=== PATIENT | male | born 1945 | race Caucasian/White ===

== ENCOUNTER 2018-01-30 18:54 | Inpatient (IN) | payer MEDICARE, MEDICAID ==
[2018-01-30] MEDS ORDERED: Haloperidol Lactate 5 mg/mL 1mL Vial IM STA (19:30)
--- NOTE | 2018-01-30 19:41 | ED Physician Chart ---
ED Chief Complaint/HPI - Patient Information Date Seen:: 01/30/18 Time Seen:: 19:10 Chief Complaint:: Agitation History of Present Illness:: onset x 3 days of agitation; no report of trauma, SIs, H/As, S/T, neck pain, C/P , SOB, Abd. Pain, A/N/V/D/C, fever, chills, or urinary s/s Allergies:: Allergies Allergy/AdvReac Type Severity Reaction Status Date / Time No Known Allergies Allergy Verified 01/30/18 19:13 Vitals:: Vital Signs - 8 hr 01/30/18 19:10 Temp 98.8 F HR 77 RR 18 BP 133/74 O2 Sat % 99 Historian:: Patient, EMS Review:: Nurse's Note Reviewed, Old Chart Reviewed, EMS run form Reviewed ED Review of Systems - Review of Systems General/Constitutional: No fever, No chills, No weight loss, No weakness, No diaphoresis, No edema, No loss of appetite Skin: No skin lesions, No rash, No bruising Head: No headache, No light-headedness Eyes: No loss of vision, No pain, No diplopia ENT: No earache, No nasal drainage, No sore throat, No tinnitus Neck: No neck pain, No swelling, No thyromegaly, No stiffness, No mass noted Cardio Vascular: No chest pain, No palpitations, No PND, No orthopnea, No edema Pulmonary: No SOB, No cough, No sputum, No wheezing GI: No nausea, No vomiting, No diarrhea, No pain, No melena, No hematochezia, No constipation, No hematemesis G/U: No dysuria, No frequency, No hematuria Musculoskeletal: No bone or joint pain, No back pain, No muscle pain Endocrine: No polyuria, No polydipsia Psychiatric: Prior psych history, Depression, Anxiety, No suicidal ideation, No homicidal ideation, No auditory hallucination, No visual hallucination Hematopoietic: No bruising, No lymphadenopathy Allergic/Immuno: No urticaria, No angioedema Neurological: No syncope, No focal symptoms, No weakness, No paresthesia, No headache, No seizure, No dizziness, No confusion, No vertigo ED Past Medical History - Past Medical History Obtainable: Yes Past Medical History: HTN, DM, Dyslipidemia Family History: HTN Social History: Non Smoker, No Alcohol, No Drug Use, Single, Care Facility Surgical History: None Psychiatricy History: Depression, Schizophrenia, Bipolar Medication: Reviewed Family Medical History - Family Member Mother History Unknown: Yes ED Physical Exam - Physical Examination General/Constitutional: Awake, Well-developed, well-nourished, Alert, No distress, GCS 15, Non-toxic appearing, Ambulatory Head: Atraumatic Eyes: Lids, conjuctiva normal, PERRL, EOMI Skin: Nl inspection, No rash, No skin lesions, No ecchymosis, Well hydrated, No lymphadenopathy ENMT: External ears, nose nl, TM canals nl, Nasal exam nl, Lips, teeth, gums nl , Oropharynx nl, Tonsils nl Neck: Nontender, Full ROM w/o pain, No JVD, No nuchal rigidity, No bruit, No mass, No stridor Respiratory: Nl effort/Exclusion, Clear to Auscultation, No Wheeze/Rhonchi/Rales Cardio Vascular: RRR, No murmur, gallop, rubs, NL S1 S2, Carotid/Femoral/Distal pulses equal bilaterally GI: No tenderness/rebounding/guarding, No organomegaly, No hernia, Normal BS's, Nondistended, No mass/bruits, No McBurney tenderness : No CVA tenderness Extremities: No tenderness or effusion, Full ROM, normal strength in all extremities, No edema, Normal digits & nails Neuro/Psych: Alert/oriented, DTR's symmetric, Normal sensory exam, Normal motor strength, Judgement/insight normal, Mood normal, Normal gait, No focal deficits Other Neuro/Psych comments:: + Psychomotor Agitation; no SIs; Mood/Affect: Labile Misc: Normal back, No paraspinal tenderness ED Labs/Radiology/EKG Results - Lab Results Comments:: Reviewed - EKG Interpretations EKG Time:: 19:47 Rate & Rhythm: 69; NSR Comments:: non-specific st-t changes ED Septic Shock - . Is Septic Shock (SBP<90, OR Lactate>4 mmol\L) present?: No - <6hrs of presentation: Vital Signs: Vital Signs - 8 hr 01/30/18 19:10 Temp 98.8 F HR 77 RR 18 BP 133/74 O2 Sat % 99 ED Reassessment (Disposition) - Reassessment Reassessment Condition:: Improved - Diagnosis Diagnosis:: Agitation; Medical Clearance; Bipolar Disorder; DM; Schizo-Affective Disorder - Aftercare/Follow up Instructions Aftercare/Follow-Up Instructions:: Counseled pt regarding lab results/diagnosis & need follow up, Counseled pt & family regarding lab results/diagnosis & need follow up - Patient Disposition Discharge/Transfer:: Acute Care w/in this hosp Admitted to:: [facility] Condition at Disposition:: Stable, Improved
[2018-01-30] MEDS ORDERED: Haloperidol Lactate 5 mg/mL 1mL Vial ONE (19:58)
[2018-01-30 20:49] LABS: % BASOPHILS 0.4 % (0.0-2.0); % EOSINOPHILS 1.8 % (0.0-5.0); % LYMPHOCYTES 9.6 % (20.0-50.0); % MONOCYTES 6.9 % (2.0-10.0); % NEUTROPHILS 81.3 % (40.0-80.0); EOSINOPHILE ABSOLUTE 0.1 Th/cmm (0.1-0.4); HEMATOCRIT 39.2 % (41.0-60); HEMOGLOBIN 13.1 gm/dL (12-16); LYMPHOCYTE ABSOLUTE 0.7 Th/cmm (1.5-3.0); MEAN CELL VOLUME 95.9 fl (80-99); MEAN CORPUSCULAR HEMOGLOBIN 32.1 pg (27.0-31.0); MEAN CORPUSCULAR HGB CONC 33.5 pg (28.0-36.0); MONOCYTE ABSOLUTE 0.5 Th/cmm (0.3-1.0); NEUTROPHILE ABSOLUTE 5.6 Th/cmm (1.8-8.0); PLATELET COUNT 191 Th/cmm (150-400); RED BLOOD COUNT 4.09 Mil/cmm (3.80-5.80); RED CELL DISTRIBUTION WIDTH 12.7 % (11.5-20.0); WHITE BLOOD COUNT 6.9 Th/cmm (4.8-10.8)
[2018-01-30 20:50] LABS: URINE SOURCE CLEAN C
[2018-01-30 20:55] LABS: URINE BILIRUBIN NEGATIVE (NEGATIVE); URINE BLOOD NEGATIVE (NEGATIVE); URINE GLUCOSE (UA) 100 mg/dL (NEGATIVE); URINE KETONE NEGATIVE (NEGATIVE); URINE LEUKOCYTE ESTERASE NEGATIVE (NEGATIVE); URINE NITRATE NEGATIVE (NEGATIVE); URINE PROTEIN NEGATIVE (NEGATIVE); URINE UROBILINOGEN 0.2 E.U./dL (0.2 - 1.0)
[2018-01-30 21:02] LABS: URINE CLARITY CLEAR (CLEAR); URINE COLOR YELLOW; URINE MICROSCOPIC INDICATED? YES; URINE RBC NONE SEEN /hpf (0-5)
[2018-01-30 21:03] LABS: URINE BACTERIA OCCASIONAL /hpf (NONE SEEN); URINE EPITHELIAL CELLS OCCASIONAL /lpf (FEW); URINE WBC 0-2 /hpf (0-5)
[2018-01-30 21:04] LABS: AMPHETAMINE URINE NEGATIVE (NEGATIVE); BARBITURATES URINE NEGATIVE (NEGATIVE); BENZODIAZEPINES QUAL URINE NEGATIVE (NEGATIVE); CANNABINOID THC NEGATIVE (NEGATIVE); COCAINE METABOLITE QUAL URINE NEGATIVE (NEGATIVE); METHADONE URINE NEGATIVE (NEGATIVE); METHAMPHETAMINES QUAL URINE NEGATIVE (NEGATIVE); OPIATES (MORPHINE) QUAL. URINE NEGATIVE (NEGATIVE); PHENCYCLIDINE (PCP) URINE NEGATIVE (NEGATIVE); TRICYCLICS (TCA) QUAL. URINE NEGATIVE (NEGATIVE)
[2018-01-30 21:08] LABS: ALB/GLOB RATIO 1.6 (1.0-1.8); ALKALINE PHOSPHATASE 65 U/L (34-104); ANION GAP 12.9 (7.0-16.0); BILIRUBIN,TOTAL 0.5 mg/dL (0.3-1.0); BUN - UREA NITROGEN 21 mg/dL (7-25); CALCIUM SERUM 9.1 mg/dL (8.6-10.3); CHLORIDE 103 mEq/L (98-107); CHOLESTEROL 130 mg/dL (<200); CREATININE - SERUM 0.9 mg/dL (0.7-1.3); GLUCOSE 277 mg/dL (70-105); HDL -HIGH DENSITY LIPOPROTEIN 39 mg/dL (23-92); POTASSIUM SERUM 3.9 mEq/L (3.5-5.1); SALICYLATES (ASPIRIN) < 25.0 mg/L (30.0-100.0); SGOT 21 U/L (13-39); SGPT/ALT 25 U/L (7-52); SODIUM SERUM 137 mEq/L (136-145); TOTAL PROTEIN,SERUM 6.5 gm/dL (6.0-8.3); TRIGLYCERIDES 76 mg/dL (<150)
[2018-01-30 21:24] LABS: ACETAMINOPHEN < 10.0 ug/mL (10.0-30.0)
[2018-01-30] MEDS ORDERED: INSULIN HUMAN REGULAR 100 UNITS/ML UNIT SUBQ ONE (21:54)
[2018-01-30] MEDS ORDERED: INSULIN HUMAN REGULAR 100 UNITS/ML UNIT ONE (21:59)
[2018-01-31 11:34] VITALS: BP 153/89
[2018-01-31] MEDS ORDERED: Magnesium Hydroxide (MOM) 30 mL UDC PO PRN ×2 (11:53→21:06)
[2018-01-31] MEDS ORDERED: Maalox 30 mL Cup PO PRN (11:53)
--- NOTE | 2018-01-31 12:59 | History & Physical ---
ADMIT DATE: 01/30/2018 IDENTIFYING INFORMATION: The patient is a 72-year-old male. CHIEF COMPLAINT: No answer. HISTORY OF PRESENT ILLNESS: This is referred from [place] because he has increasing agitation, striking out at staff, unpredictable, impulsive. When I talked to him, he is a well-known ____ know him from [place]. The patient usually refuses to talk. He does not believe he needs a psychiatrist with episodes of agitation and irritability. The patient did not know where he was. He was answering questions inappropriately. The patient is unable to participate in meaningful conversation or make safe plan for self-care. He has to be medicated upon admission. PAST PSYCHIATRIC HISTORY: Agitation and irritability, refusing medication. The patient was given Haldol. ALLERGIES: No known drug allergies. MEDICAL HISTORY: The patient is diabetic. FAMILY AND SOCIAL HISTORY: The patient refused to give me any information. However, also he is talking to himself, psychotic, unpredictable, impulsive, needing redirection. No information regarding family history. No information regarding education. MENTAL STATUS EXAMINATION: The patient is appropriately dressed, not well groomed. He was in bed, feeding himself. Unable to participate in meaningful conversation or make safe plan for self-care. Unable to tell me the date, where he is, why he is here, unwilling to participate in memory testing. He is also hard of hearing. Very poor insight. He was feeding himself. He has poor insight, acting psychotic, easily agitated. His insight and judgment is impaired. IMPRESSION: Psychosis, not otherwise specified. MEDICAL DIAGNOSES: Deferred to the medical doctor. The patient is also blind. INITIAL TREATMENT PLAN: The patient will be started on Abilify. We will do group therapy, milieu therapy, and individual therapy. ESTIMATED LENGTH OF STAY: 3-7 days. DISCHARGE CRITERIA: Decrease in psychosis and agitation. After discharge, outpatient. JOB# [id number]
[2018-01-31] MEDS: Atorvastatin Calcium 10 MG TAB PO SCH (20:52)
--- NOTE | 2018-02-01 00:11 | History & Physical ---
ADMIT DATE: HISTORY OF PRESENT ILLNESS: The patient is a 72-year-old male with long history of diabetes mellitus, hyperlipidemia, and legally blind. The patient admitted to [facility] under Dr. Hager's service with psychosis. No chest pain, no shortness of breath, no fever, no chills. PAST MEDICAL HISTORY: Significant for diabetes mellitus, hyperlipidemia, legally blind, and depression. PAST SURGICAL HISTORY: No recent surgery. ALLERGIES: None. MEDICATIONS: Follow admission reconciliation. SOCIAL HISTORY: No smoking, no alcohol, no drugs. FAMILY HISTORY: Noncontributory. REVIEW OF SYSTEMS: IMMUNO SYSTEM: No history of chronic immune disorder. CARDIOVASCULAR SYSTEM: No coronary artery disease. ENDOCRINE: He has history of diabetes mellitus. GASTROINTESTINAL SYSTEM: No upper or lower gastrointestinal bleed. NEUROLOGICAL SYSTEM: No seizure disorder. SKELETOMUSCULAR SYSTEM: Muscular dystrophy. HEMATOLOGICAL: No bleeding tendency. RESPIRATORY SYSTEM: No asthma. GENITOURINARY: No dysuria or hematuria. PHYSICAL EXAMINATION: GENERAL: He is awake, alert, mildly confused. VITAL SIGNS: Temperature 98.6, heart rate 70, blood pressure 118/72. HEENT: Normocephalic. Pupils reactive to light and accommodation. Sclerae clear. NECK: Supple. Negative for lymphadenopathy, JVD or bruit. CHEST: Entry of air bilaterally normal. No rhonchi or wheezing. HEART: S1, S2 normal. No gallop rhythm. ABDOMEN: Soft, bowel sounds positive. EXTREMITIES: No edema. NEUROLOGIC: He is awake, alert, no focal motor or sensory deficits. He is legally blind. LABORATORY DATA: White blood 6.9, hemoglobin 13.1, hematocrit 39.2, platelets 191. Sodium 137, potassium 3.9, BUN 21, creatinine 0.9, glucose 277. ASSESSMENT: 1. Diabetes mellitus. 2. Hyperlipidemia. 3. Depression. 4. Psychosis. PLAN: The patient admitted to the hospital under Dr. Hager's service. The patient will resume his diet and medication. The patient is clinically stable for activity. Thank you, Dr. Hager, for asking me to see your patient. JOB# [id number]
[2018-02-01] MEDS: INSULIN ASPART SLIDING SCALE 100 UNITS/ML UNIT SUBQ SCH ×4 (06:45→20:50)
[2018-02-01] MEDS ORDERED: INSULIN ASPART SLIDING SCALE 100 UNITS/ML UNIT SUBQ SCH (07:30)
[2018-02-01] MEDS ORDERED: Non-Formulary Item 1 EA (Metformin Hcl [Glucophage] 1,000 MG) PO SCH (09:00)
[2018-02-01] MEDS: Multivitamin Tab PO SCH (09:11)
[2018-02-01] MEDS: Aspirin 81mg Chewable Tab PO SCH (09:11)
--- NOTE | 2018-02-01 15:50 | Internal Medicine Prog Note ---
Internal Medicine Subjective - Subjective Service Date: 02/01/18 Patient seen and examined:: with staff Patient is:: awake, verbal, in bed, talking Per staff patient has:: no adverse event Internal Medicine Objective - Results Result Diagrams: 01/30/18 20:45 01/30/18 20:45 Recent Labs: Laboratory Last Values WBC 6.9 Th/cmm (4.8-10.8) 01/30/18 20:45 RBC 4.09 Mil/cmm (3.80-5.80) 01/30/18 20:45 Hgb 13.1 gm/dL (12-16) 01/30/18 20:45 Hct 39.2 % (41.0-60) L 01/30/18 20:45 MCV 95.9 fl (80-99) 01/30/18 20:45 MCH 32.1 pg (27.0-31.0) H 01/30/18 20:45 MCHC Differential 33.5 pg (28.0-36.0) 01/30/18 20:45 RDW 12.7 % (11.5-20.0) 01/30/18 20:45 Plt Count 191 Th/cmm (150-400) 01/30/18 20:45 MPV 8.0 fl 01/30/18 20:45 Neutrophils % 81.3 % (40.0-80.0) H 01/30/18 20:45 Lymphocytes % 9.6 % (20.0-50.0) L 01/30/18 20:45 Monocytes % 6.9 % (2.0-10.0) 01/30/18 20:45 Eosinophils % 1.8 % (0.0-5.0) 01/30/18 20:45 Basophils % 0.4 % (0.0-2.0) 01/30/18 20:45 Sodium 137 mEq/L (136-145) 01/30/18 20:45 Potassium 3.9 mEq/L (3.5-5.1) 01/30/18 20:45 Chloride 103 mEq/L (98-107) 01/30/18 20:45 Carbon Dioxide 25.0 mEq/L (21.0-31.0) 01/30/18 20:45 Anion Gap 12.9 (7.0-16.0) 01/30/18 20:45 BUN 21 mg/dL (7-25) 01/30/18 20:45 Creatinine 0.9 mg/dL (0.7-1.3) 01/30/18 20:45 Est GFR ( Amer) TNP 01/30/18 20:45 Est GFR (Non-Af Amer) TNP 01/30/18 20:45 BUN/Creatinine Ratio 23.3 01/30/18 20:45 Glucose 277 mg/dL (70-105) H 01/30/18 20:45 POC Glucose 118 MG/DL (70 - 105) H 02/01/18 06:18 Calcium 9.1 mg/dL (8.6-10.3) 01/30/18 20:45 Total Bilirubin 0.5 mg/dL (0.3-1.0) 01/30/18 20:45 AST 21 U/L (13-39) 01/30/18 20:45 ALT 25 U/L (7-52) 01/30/18 20:45 Alkaline Phosphatase 65 U/L (34-104) 01/30/18 20:45 Troponin I 0.05 ng/mL (0.01-0.05) 01/30/18 20:45 Total Protein 6.5 gm/dL (6.0-8.3) 01/30/18 20:45 Albumin 4.0 gm/dL (4.2-5.5) L 01/30/18 20:45 Globulin 2.5 gm/dL 01/30/18 20:45 Albumin/Globulin Ratio 1.6 (1.0-1.8) 01/30/18 20:45 Triglycerides 76 mg/dL (<150) 01/30/18 20:45 Cholesterol 130 mg/dL (<200) 01/30/18 20:45 LDL Cholesterol Direct 79 mg/dL (75-193) 01/30/18 20:45 HDL Cholesterol 39 mg/dL (23-92) 01/30/18 20:45 TSH 3.52 uIU/ml (0.34-5.60) 01/30/18 20:45 Urine Source CLEAN C 01/30/18 20:11 Urine Color YELLOW 01/30/18 20:11 Urine Clarity CLEAR (CLEAR) 01/30/18 20:11 Urine pH 6.0 (4.6 - 8.0) 01/30/18 20:11 Ur Specific [place] <= 1.005 (1.005-1.030) 01/30/18 20:11 Urine Protein NEGATIVE mg/dL (NEGATIVE) 01/30/18 20:11 Urine Glucose (UA) 100 mg/dL (NEGATIVE) H 01/30/18 20:11 Urine Ketones NEGATIVE mg/dL (NEGATIVE) 01/30/18 20:11 Urine Blood NEGATIVE (NEGATIVE) 01/30/18 20:11 Urine Nitrate NEGATIVE (NEGATIVE) 01/30/18 20:11 Urine Bilirubin NEGATIVE (NEGATIVE) 01/30/18 20:11 Urine Urobilinogen 0.2 E.U./dL (0.2 - 1.0) 01/30/18 20:11 Ur Leukocyte Esterase NEGATIVE (NEGATIVE) 01/30/18 20:11 Urine RBC NONE SEEN /hpf (0-5) 01/30/18 20:11 Urine WBC 0-2 /hpf (0-5) 01/30/18 20:11 Ur Epithelial Cells OCCASIONAL /lpf (FEW) 01/30/18 20:11 Urine Bacteria OCCASIONAL /hpf (NONE SEEN) 01/30/18 20:11 Salicylates < 25.0 mg/L (30.0-100.0) L 01/30/18 20:45 Urine Opiates Screen NEGATIVE (NEGATIVE) 01/30/18 20:11 Urine Methadone Screen NEGATIVE (NEGATIVE) 01/30/18 20:11 Acetaminophen < 10.0 ug/mL (10.0-30.0) L 01/30/18 20:45 Ur Barbiturates Screen NEGATIVE (NEGATIVE) 01/30/18 20:11 Ur Tricyclics Screen NEGATIVE (NEGATIVE) 01/30/18 20:11 Ur Phencyclidine Scrn NEGATIVE (NEGATIVE) 01/30/18 20:11 Amphetamines Screen NEGATIVE (NEGATIVE) 01/30/18 20:11 U Methamphetamines Scrn NEGATIVE (NEGATIVE) 01/30/18 20:11 U Benzodiazepines Scrn NEGATIVE (NEGATIVE) 01/30/18 20:11 U Cocaine Metab Screen NEGATIVE (NEGATIVE) 01/30/18 20:11 U Cannabinoids Screen NEGATIVE (NEGATIVE) 01/30/18 20:11 Ethyl Alcohol < 10 mg/dL (0-10) 01/30/18 20:45 RPR NONREACTIVE (NONREACTIVE) 01/30/18 20:45 - Physical Exam Vitals and I&O: Vital Signs Temp 98.6 F 01/31/18 20:00 Pulse 70 01/31/18 20:00 Resp 20 01/31/18 20:00 BP 118/72 01/31/18 20:00 Pulse Ox 99 01/31/18 20:00 Intake & Output 01/31/18 02/01/18 02/01/18 18:59 06:59 18:59 Intake Total 240 Balance 240 Intake: Oral 240 Other: # Voids 2 Active Medications: Current Medications Acetaminophen (Tylenol) 650 mg PO Q4HR PRN PRN Reason: Mild Pain / Temp above 100 Stop: 04/01/18 11:52 Al Hydrox/Mg Hydrox/Simethicone (Maalox) 30 ml PO Q4HR PRN PRN Reason: GI DISTRESS Stop: 04/01/18 11:52 Aripiprazole (Abilify) 5 mg PO DAILY [facility]; Protocol Stop: 04/02/18 08:59 Last Admin: 02/01/18 09:11 Dose: 5 mg Aspirin (Aspirin Chewable) 81 mg PO DAILY [facility] Stop: 04/02/18 08:59 Last Admin: 02/01/18 09:11 Dose: 81 mg Atorvastatin Calcium (Lipitor) 20 mg PO HS [facility]; Protocol Stop: 04/01/18 20:59 Last Admin: 01/31/18 20:52 Dose: 20 mg Docusate Sodium (Colace) 100 mg PO BID [facility] Stop: 04/02/18 08:59 Last Admin: 02/01/18 09:11 Dose: 100 mg Insulin Aspart (Novolog Insulin Sliding Scale) 0 units SUBQ ACHS [facility]; Protocol Stop: 04/02/18 07:29 Last Admin: 02/01/18 12:01 Dose: Not Given Lorazepam (Ativan) 0.5 mg PO Q4HR PRN; Protocol PRN Reason: Anxiety Stop: 03/02/18 11:52 Last Admin: 02/01/18 09:33 Dose: 0.5 mg Magnesium Hydroxide (Milk Of Magnesia) 30 ml PO HS PRN PRN Reason: Constipation Stop: 04/01/18 21:05 Metformin HCl (Glucophage) 1,000 mg PO BID [facility] Stop: 04/02/18 08:59 Last Admin: 02/01/18 09:11 Dose: 1,000 mg Multivitamins/Vitamin C (Theragran) 1 tab PO DAILY [place] Stop: 04/02/18 08:59 Last Admin: 02/01/18 09:11 Dose: 1 tab Zolpidem Tartrate (Ambien) 5 mg PO HS PRN PRN Reason: Insomnia Stop: 04/01/18 11:52 General: demented HEENT: NC/AT, PERRLA, EOMI, anicteric sclerae, throat clear Neck: Supple, No JVD, No thyromegaly, +2 carotid pulse wo bruit, No LAD Lungs: CTAB Cardiovascular: RRR, Normal S1, Normal S2, without murmur Abdomen: soft, non-tender, non-distended Extremities: clear Neurological: no change Internal Medicine Assmt/Plan - Assessment Assessment: 1.DM. 2.HYPERLIPIDEMIA. 3.DEPRESSION. 4.PSYCHOSIS. - Plan Plan: CONTINUE ON CURENT MEDICATION AND DIET. Nutritional Asmnt/Malnutr-PDOC - Dietary Evaluation Malnutrition Findings (Please click <Entered> for more info): Nutritional Asmnt/Malnutrition Start: 01/31/18 12: 36 Text: Status: Complete Freq: Protocol: Document 01/31/18 12:36 FRANK (Rec: 01/31/18 12:47 [email or web address]) Nutritional Asmnt/Malnutrition Patient General Information Nutritional Screening High Risk Diagnosis psychosis Pertinent Medical Hx/Surgical Hx HTN, DM, dyslipidemia, depression, schizophrenia, bipolar, legally blind Subjective Information BS 277 upon admit noted. Pt sleeping w/ blanket covering head at time of visit. Diet ordered started from today's lunch. Current Diet Order/ Nutrition Support mech soft chopped, TY, CCHO 60 gm Pertinent Medications theragran Pertinent Labs 01/30: glucose 277, Alb 4.0 Nutritional Hx/Data Height 1.65 m Height (Calculated Centimeters) 165.1 Current Weight (lbs) 65.771 kg Weight (Calculated Kilograms) 65.8 Weight (Calculated Grams) 66214.9 [place] Body Weight 136 lb Body Mass Index (BMI) 24.1 Weight Status Approriate GI Symptoms GI Symptoms None Last BM none noted Difficult in: None Food Allergies No Skin Integrity/Comment: rash, generalized scabs mildred score not noted in EMR Estimated Nutritional Goals BEE in Kcals: Using Current wt Calories/Kcals/Kg 25-30 Kcals Calculated [id number] Protein: Using Current wt Protein g/k.0 Protein Calculated 66 g Fluid: ml [id number] (1 ml/kcal) Nutritional Problem 1. Problem Problem Altered nutrition related lab value Etiology hyperglycemia, endocrine dysfunction Signs/Symptoms: bs 277 upon admit Malnutrition Alert Is there a minimum of two criteria No selected? Query Text:Check all the applicable criteria. A minimum of two criteria are recommended for diagnosis of either severe or non-severe malnutrition. Malnutrition Related to Morbid Obesity Malnutrition related to morbid obesity No Intervention/Recommendation Comments 1. Continue with [facility] soft chopped, TY, CCHO 60 gm diet as ordered. will attempt to provide diabetic education when pt available. 2. Monitor PO intake, wt, labs and skin integrity 3. F/U as moderate risk in 3-5 days, 02/03- Expected Outcomes/Goals Expected Outcomes/Goals 1. PO intake to meet at least 75% of all meals 2. Wt stability, skin to remain intact, labs to approach WNL Reviewed by Erna Ball RD
[2018-02-01] MEDS: Atorvastatin Calcium 10 MG TAB PO SCH (20:44)
--- NOTE | 2018-02-02 00:18 | Progress Notes ---
DATE: 02/01/2018 Case was discussed with staff of the patient, reviewed records. The patient have very poor insight about why he is here. He believed that the staff was hitting him instead of the other way around. He has poor vision, legally blind. Unable to formulate safe plan for self-care, very poor insight about the situation. He is compliant with the medication with no side effects, no sedation, no nausea, no extrapyramidal symptoms. His lab work showed low hematocrit, low MCH, high neutrophil the rest within normal range. Chemistry panel shows high blood sugar and low albumin, the rest within normal range. TSH within normal range. Urinalysis was sugar in the urine and toxicology is negative. RPR nonreactive. We will continue to work with the patient in group therapy, milieu therapy, adjust medication as needed. JOB# [id number]
[2018-02-02] MEDS: INSULIN ASPART SLIDING SCALE 100 UNITS/ML UNIT SUBQ SCH ×4 (07:06→21:28)
[2018-02-02] MEDS: Aspirin 81mg Chewable Tab PO SCH ×2 (08:40→08:59)
[2018-02-02] MEDS: Multivitamin Tab PO SCH ×2 (08:41→09:00)
--- NOTE | 2018-02-02 18:36 | Internal Medicine Prog Note ---
Internal Medicine Subjective - Subjective Service Date: 02/02/18 Patient seen and examined:: with staff Patient is:: awake, verbal, in bed, talking Per staff patient has:: no adverse event Internal Medicine Objective - Results Result Diagrams: 01/30/18 20:45 01/30/18 20:45 Recent Labs: Laboratory Last Values WBC 6.9 Th/cmm (4.8-10.8) 01/30/18 20:45 RBC 4.09 Mil/cmm (3.80-5.80) 01/30/18 20:45 Hgb 13.1 gm/dL (12-16) 01/30/18 20:45 Hct 39.2 % (41.0-60) L 01/30/18 20:45 MCV 95.9 fl (80-99) 01/30/18 20:45 MCH 32.1 pg (27.0-31.0) H 01/30/18 20:45 MCHC Differential 33.5 pg (28.0-36.0) 01/30/18 20:45 RDW 12.7 % (11.5-20.0) 01/30/18 20:45 Plt Count 191 Th/cmm (150-400) 01/30/18 20:45 MPV 8.0 fl 01/30/18 20:45 Neutrophils % 81.3 % (40.0-80.0) H 01/30/18 20:45 Lymphocytes % 9.6 % (20.0-50.0) L 01/30/18 20:45 Monocytes % 6.9 % (2.0-10.0) 01/30/18 20:45 Eosinophils % 1.8 % (0.0-5.0) 01/30/18 20:45 Basophils % 0.4 % (0.0-2.0) 01/30/18 20:45 Sodium 137 mEq/L (136-145) 01/30/18 20:45 Potassium 3.9 mEq/L (3.5-5.1) 01/30/18 20:45 Chloride 103 mEq/L (98-107) 01/30/18 20:45 Carbon Dioxide 25.0 mEq/L (21.0-31.0) 01/30/18 20:45 Anion Gap 12.9 (7.0-16.0) 01/30/18 20:45 BUN 21 mg/dL (7-25) 01/30/18 20:45 Creatinine 0.9 mg/dL (0.7-1.3) 01/30/18 20:45 Est GFR ( Amer) TNP 01/30/18 20:45 Est GFR (Non-Af Amer) TNP 01/30/18 20:45 BUN/Creatinine Ratio 23.3 01/30/18 20:45 Glucose 277 mg/dL (70-105) H 01/30/18 20:45 POC Glucose 118 MG/DL (70 - 105) H 02/01/18 06:18 Calcium 9.1 mg/dL (8.6-10.3) 01/30/18 20:45 Total Bilirubin 0.5 mg/dL (0.3-1.0) 01/30/18 20:45 AST 21 U/L (13-39) 01/30/18 20:45 ALT 25 U/L (7-52) 01/30/18 20:45 Alkaline Phosphatase 65 U/L (34-104) 01/30/18 20:45 Troponin I 0.05 ng/mL (0.01-0.05) 01/30/18 20:45 Total Protein 6.5 gm/dL (6.0-8.3) 01/30/18 20:45 Albumin 4.0 gm/dL (4.2-5.5) L 01/30/18 20:45 Globulin 2.5 gm/dL 01/30/18 20:45 Albumin/Globulin Ratio 1.6 (1.0-1.8) 01/30/18 20:45 Triglycerides 76 mg/dL (<150) 01/30/18 20:45 Cholesterol 130 mg/dL (<200) 01/30/18 20:45 LDL Cholesterol Direct 79 mg/dL (75-193) 01/30/18 20:45 HDL Cholesterol 39 mg/dL (23-92) 01/30/18 20:45 TSH 3.52 uIU/ml (0.34-5.60) 01/30/18 20:45 Urine Source CLEAN C 01/30/18 20:11 Urine Color YELLOW 01/30/18 20:11 Urine Clarity CLEAR (CLEAR) 01/30/18 20:11 Urine pH 6.0 (4.6 - 8.0) 01/30/18 20:11 Ur Specific [place] <= 1.005 (1.005-1.030) 01/30/18 20:11 Urine Protein NEGATIVE mg/dL (NEGATIVE) 01/30/18 20:11 Urine Glucose (UA) 100 mg/dL (NEGATIVE) H 01/30/18 20:11 Urine Ketones NEGATIVE mg/dL (NEGATIVE) 01/30/18 20:11 Urine Blood NEGATIVE (NEGATIVE) 01/30/18 20:11 Urine Nitrate NEGATIVE (NEGATIVE) 01/30/18 20:11 Urine Bilirubin NEGATIVE (NEGATIVE) 01/30/18 20:11 Urine Urobilinogen 0.2 E.U./dL (0.2 - 1.0) 01/30/18 20:11 Ur Leukocyte Esterase NEGATIVE (NEGATIVE) 01/30/18 20:11 Urine RBC NONE SEEN /hpf (0-5) 01/30/18 20:11 Urine WBC 0-2 /hpf (0-5) 01/30/18 20:11 Ur Epithelial Cells OCCASIONAL /lpf (FEW) 01/30/18 20:11 Urine Bacteria OCCASIONAL /hpf (NONE SEEN) 01/30/18 20:11 Salicylates < 25.0 mg/L (30.0-100.0) L 01/30/18 20:45 Urine Opiates Screen NEGATIVE (NEGATIVE) 01/30/18 20:11 Urine Methadone Screen NEGATIVE (NEGATIVE) 01/30/18 20:11 Acetaminophen < 10.0 ug/mL (10.0-30.0) L 01/30/18 20:45 Ur Barbiturates Screen NEGATIVE (NEGATIVE) 01/30/18 20:11 Ur Tricyclics Screen NEGATIVE (NEGATIVE) 01/30/18 20:11 Ur Phencyclidine Scrn NEGATIVE (NEGATIVE) 01/30/18 20:11 Amphetamines Screen NEGATIVE (NEGATIVE) 01/30/18 20:11 U Methamphetamines Scrn NEGATIVE (NEGATIVE) 01/30/18 20:11 U Benzodiazepines Scrn NEGATIVE (NEGATIVE) 01/30/18 20:11 U Cocaine Metab Screen NEGATIVE (NEGATIVE) 01/30/18 20:11 U Cannabinoids Screen NEGATIVE (NEGATIVE) 01/30/18 20:11 Ethyl Alcohol < 10 mg/dL (0-10) 01/30/18 20:45 RPR NONREACTIVE (NONREACTIVE) 01/30/18 20:45 - Physical Exam Vitals and I&O: Vital Signs Temp 0 F 02/02/18 06:17 Pulse 70 01/31/18 20:00 Resp 20 01/31/18 20:00 BP 118/72 01/31/18 20:00 Pulse Ox 99 01/31/18 20:00 Intake & Output 02/01/18 02/02/18 02/02/18 18:59 06:59 18:59 Intake Total 1200 120 Balance 1200 120 Intake: Oral 1200 120 Other: # Voids 3 # Bowel Movements 1 0 Active Medications: Current Medications Acetaminophen (Tylenol) 650 mg PO Q4HR PRN PRN Reason: Mild Pain / Temp above 100 Stop: 04/01/18 11:52 Al Hydrox/Mg Hydrox/Simethicone (Maalox) 30 ml PO Q4HR PRN PRN Reason: GI DISTRESS Stop: 04/01/18 11:52 Aripiprazole (Abilify) 5 mg PO DAILY [facility]; Protocol Stop: 04/02/18 08:59 Last Admin: 02/02/18 08:59 Dose: Not Given Aspirin (Aspirin Chewable) 81 mg PO DAILY [facility] Stop: 04/02/18 08:59 Last Admin: 02/02/18 08:59 Dose: Not Given Atorvastatin Calcium (Lipitor) 20 mg PO HS [facility]; Protocol Stop: 04/01/18 20:59 Last Admin: 02/01/18 20:44 Dose: 20 mg Docusate Sodium (Colace) 100 mg PO BID [facility] Stop: 04/02/18 08:59 Last Admin: 02/02/18 17:08 Dose: Not Given Insulin Aspart (Novolog Insulin Sliding Scale) 0 units SUBQ ACHS [facility]; Protocol Stop: 04/02/18 07:29 Last Admin: 02/02/18 16:08 Dose: Not Given Lorazepam (Ativan) 0.5 mg PO Q4HR PRN; Protocol PRN Reason: Anxiety Stop: 03/02/18 11:52 Last Admin: 02/01/18 16:48 Dose: 0.5 mg Magnesium Hydroxide (Milk Of Magnesia) 30 ml PO HS PRN PRN Reason: Constipation Stop: 04/01/18 21:05 Metformin HCl (Glucophage) 1,000 mg PO BID [facility] Stop: 04/02/18 08:59 Last Admin: 02/02/18 17:08 Dose: Not Given Multivitamins/Vitamin C (Theragran) 1 tab PO DAILY [facility] Stop: 04/02/18 08:59 Last Admin: 02/02/18 09:00 Dose: Not Given Valproate Sodium (Depakene) 250 mg PO BID [facility]; Protocol Stop: 04/03/18 16:59 Last Admin: 02/02/18 17:09 Dose: 250 mg Zolpidem Tartrate (Ambien) 5 mg PO HS PRN PRN Reason: Insomnia Stop: 04/01/18 11:52 Last Admin: 02/01/18 20:49 Dose: 5 mg General: demented HEENT: NC/AT, PERRLA, EOMI, anicteric sclerae, throat clear Neck: Supple, No JVD, No thyromegaly, +2 carotid pulse wo bruit, No LAD Lungs: CTAB Cardiovascular: RRR, Normal S1, Normal S2, without murmur Abdomen: soft, non-tender, non-distended Extremities: clear Neurological: no change Internal Medicine Assmt/Plan - Assessment Assessment: 1.DM. 2.HYPERLIPIDEMIA. 3.DEPRESSION. 4.PSYCHOSIS. - Plan Plan: CONTINUE ON CURENT MEDICATION AND DIET. Nutritional Asmnt/Malnutr-PDOC - Dietary Evaluation Malnutrition Findings (Please click <Entered> for more info): Nutritional Asmnt/Malnutrition Start: 01/31/18 12: 36 Text: Status: Complete Freq: Protocol: Document 01/31/18 12:36 FRANK (Rec: 01/31/18 12:47 FRANK [email or web address]) Nutritional Asmnt/Malnutrition Patient General Information Nutritional Screening High Risk Diagnosis psychosis Pertinent Medical Hx/Surgical Hx HTN, DM, dyslipidemia, depression, schizophrenia, bipolar, legally blind Subjective Information BS 277 upon admit noted. Pt sleeping w/ blanket covering head at time of visit. Diet ordered started from today's lunch. Current Diet Order/ Nutrition Support [facility] soft chopped, TY, CCHO 60 gm Pertinent Medications theragran Pertinent Labs 01/30: glucose 277, Alb 4.0 Nutritional Hx/Data Height 1.65 m Height (Calculated Centimeters) 165.1 Current Weight (lbs) 65.771 kg Weight (Calculated Kilograms) 65.8 Weight (Calculated Grams) 74190.9 [place] Body Weight 136 lb Body Mass Index (BMI) 24.1 Weight Status Approriate GI Symptoms GI Symptoms None Last BM none noted Difficult in: None Food Allergies No Skin Integrity/Comment: rash, generalized scabs mildred score not noted in EMR Estimated Nutritional Goals BEE in Kcals: Using Current wt Calories/Kcals/Kg 25-30 Kcals Calculated 9254-1727 Protein: Using Current wt Protein g/k.0 Protein Calculated 66 g Fluid: ml 5415-2390 (1 ml/kcal) Nutritional Problem 1. Problem Problem Altered nutrition related lab value Etiology hyperglycemia, endocrine dysfunction Signs/Symptoms: bs 277 upon admit Malnutrition Alert Is there a minimum of two criteria No selected? Query Text:Check all the applicable criteria. A minimum of two criteria are recommended for diagnosis of either severe or non-severe malnutrition. Malnutrition Related to Morbid Obesity Malnutrition related to morbid obesity No Intervention/Recommendation Comments 1. Continue with [facility] soft chopped, TY, CCHO 60 gm diet as ordered. will attempt to provide diabetic education when pt available. 2. Monitor PO intake, wt, labs and skin integrity 3. F/U as moderate risk in 3-5 days, 02/03- Expected Outcomes/Goals Expected Outcomes/Goals 1. PO intake to meet at least 75% of all meals 2. Wt stability, skin to remain intact, labs to approach WNL Reviewed by Erna Ball RD
[2018-02-02] MEDS: Atorvastatin Calcium 10 MG TAB PO SCH (21:23)
--- NOTE | 2018-02-02 23:13 | Progress Notes ---
DATE: 02/02/2018 Case was discussed with staff of the patient, reviewed records. The patient refused taking medication. When I approached him to ask him about if he is only taking medication at home, he was responding well to redirection. He has not tried to harm anyone while he is here. He is sleeping well, eating well and will continue to use that. When I asked the patient why is he taking medication, he would not answer me other than he only takes medication at home, does not feel comfortable taking medication here. He does not believe he has any mental illness, does not need to be on medication and NOTE: DICTATION ENDS HERE. JOB# [id number]
[2018-02-03] MEDS: INSULIN ASPART SLIDING SCALE 100 UNITS/ML UNIT SUBQ SCH ×4 (07:02→20:37)
[2018-02-03] MEDS: Aspirin 81mg Chewable Tab PO SCH (09:14)
[2018-02-03] MEDS: Multivitamin Tab PO SCH (09:14)
--- NOTE | 2018-02-03 13:29 | Progress Notes ---
DATE: 02/03/2018 Case was discussed with staff of the patient, reviewed records. The patient has been refusing self-care. Unpredictable, impulsive, irritable, very poor insight. He also has poor vision. I tried to ask him what medication he will take, he said he has no problems and not need to be on any medications. Continues to have poor insight. Unable to participate in meaningful conversation or make safe plan for self-care. Unpredictable, impulsive, and aggressive. We will continue the patient in group therapy, milieu therapy, and adjust medication as needed. JOB# [id number]
--- NOTE | 2018-02-03 17:55 | Internal Medicine Prog Note ---
Internal Medicine Subjective - Subjective Service Date: 02/03/18 Patient seen and examined:: with staff Patient is:: awake, verbal, in bed, talking Per staff patient has:: no adverse event Internal Medicine Objective - Results Result Diagrams: 01/30/18 20:45 01/30/18 20:45 Recent Labs: Laboratory Last Values WBC 6.9 Th/cmm (4.8-10.8) 01/30/18 20:45 RBC 4.09 Mil/cmm (3.80-5.80) 01/30/18 20:45 Hgb 13.1 gm/dL (12-16) 01/30/18 20:45 Hct 39.2 % (41.0-60) L 01/30/18 20:45 MCV 95.9 fl (80-99) 01/30/18 20:45 MCH 32.1 pg (27.0-31.0) H 01/30/18 20:45 MCHC Differential 33.5 pg (28.0-36.0) 01/30/18 20:45 RDW 12.7 % (11.5-20.0) 01/30/18 20:45 Plt Count 191 Th/cmm (150-400) 01/30/18 20:45 MPV 8.0 fl 01/30/18 20:45 Neutrophils % 81.3 % (40.0-80.0) H 01/30/18 20:45 Lymphocytes % 9.6 % (20.0-50.0) L 01/30/18 20:45 Monocytes % 6.9 % (2.0-10.0) 01/30/18 20:45 Eosinophils % 1.8 % (0.0-5.0) 01/30/18 20:45 Basophils % 0.4 % (0.0-2.0) 01/30/18 20:45 Sodium 137 mEq/L (136-145) 01/30/18 20:45 Potassium 3.9 mEq/L (3.5-5.1) 01/30/18 20:45 Chloride 103 mEq/L (98-107) 01/30/18 20:45 Carbon Dioxide 25.0 mEq/L (21.0-31.0) 01/30/18 20:45 Anion Gap 12.9 (7.0-16.0) 01/30/18 20:45 BUN 21 mg/dL (7-25) 01/30/18 20:45 Creatinine 0.9 mg/dL (0.7-1.3) 01/30/18 20:45 Est GFR ( Amer) TNP 01/30/18 20:45 Est GFR (Non-Af Amer) TNP 01/30/18 20:45 BUN/Creatinine Ratio 23.3 01/30/18 20:45 Glucose 277 mg/dL (70-105) H 01/30/18 20:45 POC Glucose 118 MG/DL (70 - 105) H 02/01/18 06:18 Calcium 9.1 mg/dL (8.6-10.3) 01/30/18 20:45 Total Bilirubin 0.5 mg/dL (0.3-1.0) 01/30/18 20:45 AST 21 U/L (13-39) 01/30/18 20:45 ALT 25 U/L (7-52) 01/30/18 20:45 Alkaline Phosphatase 65 U/L (34-104) 01/30/18 20:45 Troponin I 0.05 ng/mL (0.01-0.05) 01/30/18 20:45 Total Protein 6.5 gm/dL (6.0-8.3) 01/30/18 20:45 Albumin 4.0 gm/dL (4.2-5.5) L 01/30/18 20:45 Globulin 2.5 gm/dL 01/30/18 20:45 Albumin/Globulin Ratio 1.6 (1.0-1.8) 01/30/18 20:45 Triglycerides 76 mg/dL (<150) 01/30/18 20:45 Cholesterol 130 mg/dL (<200) 01/30/18 20:45 LDL Cholesterol Direct 79 mg/dL (75-193) 01/30/18 20:45 HDL Cholesterol 39 mg/dL (23-92) 01/30/18 20:45 TSH 3.52 uIU/ml (0.34-5.60) 01/30/18 20:45 Urine Source CLEAN C 01/30/18 20:11 Urine Color YELLOW 01/30/18 20:11 Urine Clarity CLEAR (CLEAR) 01/30/18 20:11 Urine pH 6.0 (4.6 - 8.0) 01/30/18 20:11 Ur Specific [place] <= 1.005 (1.005-1.030) 01/30/18 20:11 Urine Protein NEGATIVE mg/dL (NEGATIVE) 01/30/18 20:11 Urine Glucose (UA) 100 mg/dL (NEGATIVE) H 01/30/18 20:11 Urine Ketones NEGATIVE mg/dL (NEGATIVE) 01/30/18 20:11 Urine Blood NEGATIVE (NEGATIVE) 01/30/18 20:11 Urine Nitrate NEGATIVE (NEGATIVE) 01/30/18 20:11 Urine Bilirubin NEGATIVE (NEGATIVE) 01/30/18 20:11 Urine Urobilinogen 0.2 E.U./dL (0.2 - 1.0) 01/30/18 20:11 Ur Leukocyte Esterase NEGATIVE (NEGATIVE) 01/30/18 20:11 Urine RBC NONE SEEN /hpf (0-5) 01/30/18 20:11 Urine WBC 0-2 /hpf (0-5) 01/30/18 20:11 Ur Epithelial Cells OCCASIONAL /lpf (FEW) 01/30/18 20:11 Urine Bacteria OCCASIONAL /hpf (NONE SEEN) 01/30/18 20:11 Salicylates < 25.0 mg/L (30.0-100.0) L 01/30/18 20:45 Urine Opiates Screen NEGATIVE (NEGATIVE) 01/30/18 20:11 Urine Methadone Screen NEGATIVE (NEGATIVE) 01/30/18 20:11 Acetaminophen < 10.0 ug/mL (10.0-30.0) L 01/30/18 20:45 Ur Barbiturates Screen NEGATIVE (NEGATIVE) 01/30/18 20:11 Ur Tricyclics Screen NEGATIVE (NEGATIVE) 01/30/18 20:11 Ur Phencyclidine Scrn NEGATIVE (NEGATIVE) 01/30/18 20:11 Amphetamines Screen NEGATIVE (NEGATIVE) 01/30/18 20:11 U Methamphetamines Scrn NEGATIVE (NEGATIVE) 01/30/18 20:11 U Benzodiazepines Scrn NEGATIVE (NEGATIVE) 01/30/18 20:11 U Cocaine Metab Screen NEGATIVE (NEGATIVE) 01/30/18 20:11 U Cannabinoids Screen NEGATIVE (NEGATIVE) 01/30/18 20:11 Ethyl Alcohol < 10 mg/dL (0-10) 01/30/18 20:45 RPR NONREACTIVE (NONREACTIVE) 01/30/18 20:45 - Physical Exam Vitals and I&O: Vital Signs Temp 0 F 02/02/18 06:17 Pulse 70 01/31/18 20:00 Resp 20 01/31/18 20:00 BP 118/72 01/31/18 20:00 Pulse Ox 99 01/31/18 20:00 Intake & Output 02/02/18 02/03/18 02/03/18 18:59 06:59 18:59 Other: # Voids 2 # Bowel Movements 1 Stool Characteristics Soft Active Medications: Current Medications Acetaminophen (Tylenol) 650 mg PO Q4HR PRN PRN Reason: Mild Pain / Temp above 100 Stop: 04/01/18 11:52 Al Hydrox/Mg Hydrox/Simethicone (Maalox) 30 ml PO Q4HR PRN PRN Reason: GI DISTRESS Stop: 04/01/18 11:52 Aripiprazole (Abilify) 5 mg PO DAILY [facility]; Protocol Stop: 04/02/18 08:59 Last Admin: 02/03/18 09:23 Dose: Not Given Aspirin (Aspirin Chewable) 81 mg PO DAILY [facility] Stop: 04/02/18 08:59 Last Admin: 02/03/18 09:14 Dose: Not Given Atorvastatin Calcium (Lipitor) 20 mg PO HS [facility]; Protocol Stop: 04/01/18 20:59 Last Admin: 02/02/18 21:23 Dose: Not Given Docusate Sodium (Colace) 100 mg PO BID [facility] Stop: 04/02/18 08:59 Last Admin: 02/03/18 16:11 Dose: Not Given Insulin Aspart (Novolog Insulin Sliding Scale) 0 units SUBQ ACHS [facility]; Protocol Stop: 04/02/18 07:29 Last Admin: 02/03/18 16:01 Dose: Not Given Lorazepam (Ativan) 0.5 mg PO Q4HR PRN; Protocol PRN Reason: Anxiety Stop: 03/02/18 11:52 Last Admin: 02/01/18 16:48 Dose: 0.5 mg Magnesium Hydroxide (Milk Of Magnesia) 30 ml PO HS PRN PRN Reason: Constipation Stop: 04/01/18 21:05 Metformin HCl (Glucophage) 1,000 mg PO BID [facility] Stop: 04/02/18 08:59 Last Admin: 02/03/18 16:11 Dose: Not Given Multivitamins/Vitamin C (Theragran) 1 tab PO DAILY [facility] Stop: 04/02/18 08:59 Last Admin: 02/03/18 09:14 Dose: Not Given Valproate Sodium (Depakene) 250 mg PO BID [facility]; Protocol Stop: 04/03/18 16:59 Last Admin: 02/03/18 16:11 Dose: Not Given Zolpidem Tartrate (Ambien) 5 mg PO HS PRN PRN Reason: Insomnia Stop: 04/01/18 11:52 Last Admin: 02/01/18 20:49 Dose: 5 mg General: demented HEENT: NC/AT, PERRLA, EOMI, anicteric sclerae, throat clear Neck: Supple, No JVD, No thyromegaly, +2 carotid pulse wo bruit, No LAD Lungs: CTAB Cardiovascular: RRR, Normal S1, Normal S2, without murmur Abdomen: soft, non-tender, non-distended Extremities: clear Neurological: no change Internal Medicine Assmt/Plan - Assessment Assessment: 1.DM. 2.HYPERLIPIDEMIA. 3.DEPRESSION. 4.PSYCHOSIS. - Plan Plan: CONTINUE ON CURENT MEDICATION AND DIET. Nutritional Asmnt/Malnutr-PDOC - Dietary Evaluation Malnutrition Findings (Please click <Entered> for more info): Nutritional Asmnt/Malnutrition Start: 01/31/18 12: 36 Text: Status: Complete Freq: Protocol: Document 01/31/18 12:36 FRANK (Rec: 01/31/18 12:47 FRANK [email or web address]) Nutritional Asmnt/Malnutrition Patient General Information Nutritional Screening High Risk Diagnosis psychosis Pertinent Medical Hx/Surgical Hx HTN, DM, dyslipidemia, depression, schizophrenia, bipolar, legally blind Subjective Information BS 277 upon admit noted. Pt sleeping w/ blanket covering head at time of visit. Diet ordered started from today's lunch. Current Diet Order/ Nutrition Support [facility] soft chopped, TY, CCHO 60 gm Pertinent Medications theragran Pertinent Labs 01/30: glucose 277, Alb 4.0 Nutritional Hx/Data Height 1.65 m Height (Calculated Centimeters) 165.1 Current Weight (lbs) 65.771 kg Weight (Calculated Kilograms) 65.8 Weight (Calculated Grams) 94359.9 [place] Body Weight 136 lb Body Mass Index (BMI) 24.1 Weight Status Approriate GI Symptoms GI Symptoms None Last BM none noted Difficult in: None Food Allergies No Skin Integrity/Comment: rash, generalized scabs mildred score not noted in EMR Estimated Nutritional Goals BEE in Kcals: Using Current wt Calories/Kcals/Kg 25-30 Kcals Calculated 9983-0704 Protein: Using Current wt Protein g/k.0 Protein Calculated 66 g Fluid: ml (1 ml/kcal) Nutritional Problem 1. Problem Problem Altered nutrition related lab value Etiology hyperglycemia, endocrine dysfunction Signs/Symptoms: bs 277 upon admit Malnutrition Alert Is there a minimum of two criteria No selected? Query Text:Check all the applicable criteria. A minimum of two criteria are recommended for diagnosis of either severe or non-severe malnutrition. Malnutrition Related to Morbid Obesity Malnutrition related to morbid obesity No Intervention/Recommendation Comments 1. Continue with [facility] soft chopped, TY, CCHO 60 gm diet as ordered. will attempt to provide diabetic education when pt available. 2. Monitor PO intake, wt, labs and skin integrity 3. F/U as moderate risk in 3-5 days, 02/03- Expected Outcomes/Goals Expected Outcomes/Goals 1. PO intake to meet at least 75% of all meals 2. Wt stability, skin to remain intact, labs to approach WNL Reviewed by Erna Ball RD
[2018-02-03] MEDS: Atorvastatin Calcium 10 MG TAB PO SCH (20:37)
[2018-02-04] MEDS: INSULIN ASPART SLIDING SCALE 100 UNITS/ML UNIT SUBQ SCH ×4 (06:33→20:27)
[2018-02-04] MEDS: Multivitamin Tab PO SCH (08:20)
[2018-02-04] MEDS: Aspirin 81mg Chewable Tab PO SCH (08:20)
[2018-02-04] MEDS: Atorvastatin Calcium 10 MG TAB PO SCH (20:26)
--- NOTE | 2018-02-04 21:13 | Internal Medicine Prog Note ---
Internal Medicine Subjective - Subjective Service Date: 02/04/18 Patient seen and examined:: with staff Patient is:: awake, verbal, in bed, talking Per staff patient has:: no adverse event Internal Medicine Objective - Results Result Diagrams: 01/30/18 20:45 01/30/18 20:45 Recent Labs: Laboratory Last Values WBC 6.9 Th/cmm (4.8-10.8) 01/30/18 20:45 RBC 4.09 Mil/cmm (3.80-5.80) 01/30/18 20:45 Hgb 13.1 gm/dL (12-16) 01/30/18 20:45 Hct 39.2 % (41.0-60) L 01/30/18 20:45 MCV 95.9 fl (80-99) 01/30/18 20:45 MCH 32.1 pg (27.0-31.0) H 01/30/18 20:45 MCHC Differential 33.5 pg (28.0-36.0) 01/30/18 20:45 RDW 12.7 % (11.5-20.0) 01/30/18 20:45 Plt Count 191 Th/cmm (150-400) 01/30/18 20:45 MPV 8.0 fl 01/30/18 20:45 Neutrophils % 81.3 % (40.0-80.0) H 01/30/18 20:45 Lymphocytes % 9.6 % (20.0-50.0) L 01/30/18 20:45 Monocytes % 6.9 % (2.0-10.0) 01/30/18 20:45 Eosinophils % 1.8 % (0.0-5.0) 01/30/18 20:45 Basophils % 0.4 % (0.0-2.0) 01/30/18 20:45 Sodium 137 mEq/L (136-145) 01/30/18 20:45 Potassium 3.9 mEq/L (3.5-5.1) 01/30/18 20:45 Chloride 103 mEq/L (98-107) 01/30/18 20:45 Carbon Dioxide 25.0 mEq/L (21.0-31.0) 01/30/18 20:45 Anion Gap 12.9 (7.0-16.0) 01/30/18 20:45 BUN 21 mg/dL (7-25) 01/30/18 20:45 Creatinine 0.9 mg/dL (0.7-1.3) 01/30/18 20:45 Est GFR ( Amer) TNP 01/30/18 20:45 Est GFR (Non-Af Amer) TNP 01/30/18 20:45 BUN/Creatinine Ratio 23.3 01/30/18 20:45 Glucose 277 mg/dL (70-105) H 01/30/18 20:45 POC Glucose 118 MG/DL (70 - 105) H 02/01/18 06:18 Calcium 9.1 mg/dL (8.6-10.3) 01/30/18 20:45 Total Bilirubin 0.5 mg/dL (0.3-1.0) 01/30/18 20:45 AST 21 U/L (13-39) 01/30/18 20:45 ALT 25 U/L (7-52) 01/30/18 20:45 Alkaline Phosphatase 65 U/L (34-104) 01/30/18 20:45 Troponin I 0.05 ng/mL (0.01-0.05) 01/30/18 20:45 Total Protein 6.5 gm/dL (6.0-8.3) 01/30/18 20:45 Albumin 4.0 gm/dL (4.2-5.5) L 01/30/18 20:45 Globulin 2.5 gm/dL 01/30/18 20:45 Albumin/Globulin Ratio 1.6 (1.0-1.8) 01/30/18 20:45 Triglycerides 76 mg/dL (<150) 01/30/18 20:45 Cholesterol 130 mg/dL (<200) 01/30/18 20:45 LDL Cholesterol Direct 79 mg/dL (75-193) 01/30/18 20:45 HDL Cholesterol 39 mg/dL (23-92) 01/30/18 20:45 TSH 3.52 uIU/ml (0.34-5.60) 01/30/18 20:45 Urine Source CLEAN C 01/30/18 20:11 Urine Color YELLOW 01/30/18 20:11 Urine Clarity CLEAR (CLEAR) 01/30/18 20:11 Urine pH 6.0 (4.6 - 8.0) 01/30/18 20:11 Ur Specific [place] <= 1.005 (1.005-1.030) 01/30/18 20:11 Urine Protein NEGATIVE mg/dL (NEGATIVE) 01/30/18 20:11 Urine Glucose (UA) 100 mg/dL (NEGATIVE) H 01/30/18 20:11 Urine Ketones NEGATIVE mg/dL (NEGATIVE) 01/30/18 20:11 Urine Blood NEGATIVE (NEGATIVE) 01/30/18 20:11 Urine Nitrate NEGATIVE (NEGATIVE) 01/30/18 20:11 Urine Bilirubin NEGATIVE (NEGATIVE) 01/30/18 20:11 Urine Urobilinogen 0.2 E.U./dL (0.2 - 1.0) 01/30/18 20:11 Ur Leukocyte Esterase NEGATIVE (NEGATIVE) 01/30/18 20:11 Urine RBC NONE SEEN /hpf (0-5) 01/30/18 20:11 Urine WBC 0-2 /hpf (0-5) 01/30/18 20:11 Ur Epithelial Cells OCCASIONAL /lpf (FEW) 01/30/18 20:11 Urine Bacteria OCCASIONAL /hpf (NONE SEEN) 01/30/18 20:11 Salicylates < 25.0 mg/L (30.0-100.0) L 01/30/18 20:45 Urine Opiates Screen NEGATIVE (NEGATIVE) 01/30/18 20:11 Urine Methadone Screen NEGATIVE (NEGATIVE) 01/30/18 20:11 Acetaminophen < 10.0 ug/mL (10.0-30.0) L 01/30/18 20:45 Ur Barbiturates Screen NEGATIVE (NEGATIVE) 01/30/18 20:11 Ur Tricyclics Screen NEGATIVE (NEGATIVE) 01/30/18 20:11 Ur Phencyclidine Scrn NEGATIVE (NEGATIVE) 01/30/18 20:11 Amphetamines Screen NEGATIVE (NEGATIVE) 01/30/18 20:11 U Methamphetamines Scrn NEGATIVE (NEGATIVE) 01/30/18 20:11 U Benzodiazepines Scrn NEGATIVE (NEGATIVE) 01/30/18 20:11 U Cocaine Metab Screen NEGATIVE (NEGATIVE) 01/30/18 20:11 U Cannabinoids Screen NEGATIVE (NEGATIVE) 01/30/18 20:11 Ethyl Alcohol < 10 mg/dL (0-10) 01/30/18 20:45 RPR NONREACTIVE (NONREACTIVE) 01/30/18 20:45 - Physical Exam Vitals and I&O: Vital Signs Temp 97.2 F 02/04/18 14:00 Pulse 87 02/04/18 14:00 Resp 20 02/04/18 14:00 BP 130/80 02/04/18 14:00 Pulse Ox 98 02/04/18 14:00 Intake & Output 02/04/18 02/04/18 02/05/18 06:59 18:59 06:59 Intake Total 120 120 Balance 120 120 Intake: Oral 120 120 Other: # Voids 3 1 # Bowel Movements 0 Stool Characteristics Soft Soft Soft Active Medications: Current Medications Acetaminophen (Tylenol) 650 mg PO Q4HR PRN PRN Reason: Mild Pain / Temp above 100 Stop: 04/01/18 11:52 Al Hydrox/Mg Hydrox/Simethicone (Maalox) 30 ml PO Q4HR PRN PRN Reason: GI DISTRESS Stop: 04/01/18 11:52 Aripiprazole (Abilify) 5 mg PO DAILY [facility]; Protocol Stop: 04/02/18 08:59 Last Admin: 02/04/18 08:20 Dose: Not Given Aspirin (Aspirin Chewable) 81 mg PO DAILY [facility] Stop: 04/02/18 08:59 Last Admin: 02/04/18 08:20 Dose: Not Given Atorvastatin Calcium (Lipitor) 20 mg PO HS [facility]; Protocol Stop: 04/01/18 20:59 Last Admin: 02/04/18 20:26 Dose: Not Given Docusate Sodium (Colace) 100 mg PO BID [facility] Stop: 04/02/18 08:59 Last Admin: 02/04/18 17:54 Dose: Not Given Insulin Aspart (Novolog Insulin Sliding Scale) 0 units SUBQ ACHS [facility]; Protocol Stop: 04/02/18 07:29 Last Admin: 02/04/18 20:27 Dose: Not Given Lorazepam (Ativan) 0.5 mg PO Q4HR PRN; Protocol PRN Reason: Anxiety Stop: 03/02/18 11:52 Last Admin: 02/01/18 16:48 Dose: 0.5 mg Magnesium Hydroxide (Milk Of Magnesia) 30 ml PO HS PRN PRN Reason: Constipation Stop: 04/01/18 21:05 Metformin HCl (Glucophage) 1,000 mg PO BID [facility] Stop: 04/02/18 08:59 Last Admin: 02/04/18 17:54 Dose: Not Given Multivitamins/Vitamin C (Theragran) 1 tab PO DAILY [facility] Stop: 04/02/18 08:59 Last Admin: 02/04/18 08:20 Dose: Not Given Valproate Sodium (Depakene) 250 mg PO BID [facility]; Protocol Stop: 04/03/18 16:59 Last Admin: 02/04/18 17:55 Dose: Not Given Zolpidem Tartrate (Ambien) 5 mg PO HS PRN PRN Reason: Insomnia Stop: 04/01/18 11:52 Last Admin: 02/01/18 20:49 Dose: 5 mg General: demented HEENT: NC/AT, PERRLA, EOMI, anicteric sclerae, throat clear Neck: Supple, No JVD, No thyromegaly, +2 carotid pulse wo bruit, No LAD Lungs: CTAB Cardiovascular: RRR, Normal S1, Normal S2, without murmur Abdomen: soft, non-tender, non-distended Extremities: clear Neurological: no change Internal Medicine Assmt/Plan - Assessment Assessment: 1.DM. 2.HYPERLIPIDEMIA. 3.DEPRESSION. 4.PSYCHOSIS. - Plan Plan: CONTINUE ON CURENT MEDICATION AND DIET. Nutritional Asmnt/Malnutr-PDOC - Dietary Evaluation Malnutrition Findings (Please click <Entered> for more info): Nutritional Asmnt/Malnutrition Start: 01/31/18 12: 36 Text: Status: Complete Freq: Protocol: Document 01/31/18 12:36 FRANK (Rec: 01/31/18 12:47 FRANK [email or web address]) Nutritional Asmnt/Malnutrition Patient General Information Nutritional Screening High Risk Diagnosis psychosis Pertinent Medical Hx/Surgical Hx HTN, DM, dyslipidemia, depression, schizophrenia, bipolar, legally blind Subjective Information BS 277 upon admit noted. Pt sleeping w/ blanket covering head at time of visit. Diet ordered started from today's lunch. Current Diet Order/ Nutrition Support [facility] soft chopped, TY, CCHO 60 gm Pertinent Medications theragran Pertinent Labs 01/30: glucose 277, Alb 4.0 Nutritional Hx/Data Height 1.65 m Height (Calculated Centimeters) 165.1 Current Weight (lbs) 65.771 kg Weight (Calculated Kilograms) 65.8 Weight (Calculated Grams) 78154.9 [place] Body Weight 136 lb Body Mass Index (BMI) 24.1 Weight Status Approriate GI Symptoms GI Symptoms None Last BM none noted Difficult in: None Food Allergies No Skin Integrity/Comment: rash, generalized scabs mildred score not noted in EMR Estimated Nutritional Goals BEE in Kcals: Using Current wt Calories/Kcals/Kg 25-30 Kcals Calculated 5447-9168 Protein: Using Current wt Protein g/k.0 Protein Calculated 66 g Fluid: ml 8836-1432 (1 ml/kcal) Nutritional Problem 1. Problem Problem Altered nutrition related lab value Etiology hyperglycemia, endocrine dysfunction Signs/Symptoms: bs 277 upon admit Malnutrition Alert Is there a minimum of two criteria No selected? Query Text:Check all the applicable criteria. A minimum of two criteria are recommended for diagnosis of either severe or non-severe malnutrition. Malnutrition Related to Morbid Obesity Malnutrition related to morbid obesity No Intervention/Recommendation Comments 1. Continue with [facility] soft chopped, TY, CCHO 60 gm diet as ordered. will attempt to provide diabetic education when pt available. 2. Monitor PO intake, wt, labs and skin integrity 3. F/U as moderate risk in 3-5 days, 02/03- Expected Outcomes/Goals Expected Outcomes/Goals 1. PO intake to meet at least 75% of all meals 2. Wt stability, skin to remain intact, labs to approach WNL Reviewed by Erna Ball RD
--- NOTE | 2018-02-04 22:55 | Progress Notes ---
DATE: 02/04/2018 Case was discussed with staff of the patient, reviewed records. The patient continues to refuse medication. However, he is sleeping well, eating well. He reported that he would not take his medication as long as he is here. He is sleeping well, eating well. He denies any current intent to harm himself or anybody. He seems to understand the process. However, he does not want to be on medication, so I tried to persuade him to take medication, of no use. We will continue to work with the patient in group therapy and milieu therapy. JOB# [id number]
[2018-02-05] MEDS: INSULIN ASPART SLIDING SCALE 100 UNITS/ML UNIT SUBQ SCH ×3 (06:34→16:29)
[2018-02-05] MEDS: Multivitamin Tab PO SCH (09:19)
[2018-02-05] MEDS: Aspirin 81mg Chewable Tab PO SCH (09:19)
--- NOTE | 2018-02-05 17:07 | Discharge Summary ---
DATE OF DISCHARGE: 02/04/2018 IDENTIFYING INFORMATION: The patient is a 72-year-old male. CHIEF COMPLAINT: No answer. HISTORY OF PRESENT ILLNESS: The patient referred from [facility] because he has been agitated, striking at staff, unpredictable, impulsive. The patient is well known case ____ [facility]. The patient refused to talk, does not believe he needs a psychiatrist with episodes of agitation and irritability, did not know where he was, he was answering questions appropriately, unable to participate in a meaningful conversation. The patient is legally blind with history of agitation and irritability. He had to be given Haldol upon admission. COURSE IN THE HOSPITAL: The patient after admission quieted down. He was not acting anyway dangerous. I am not sure something bothered him at the custodial because usually he tends to be quiet and cooperative. He was prescribed Depakote 250 mg twice a day. The patient also was given Abilify 5 mg daily, which he refused to take; however, the patient was not acting anyway dangerous. He was sleeping well, eating well and the plan was for him to go back to the custodial where he will be supervised and then medication could be adjusted and I felt like he was not acting anyway dangerous ____ for him to be released. FINAL DIAGNOSIS: Psychosis, not otherwise specified, resolved. MEDICAL DIAGNOSES: 1. Legally blind. 2. Hyperlipidemia. 3. Diabetes mellitus. The patient will be going back to [facility]. I will follow up with the patient there. Expected outcome is table. The patient complies above. [facility]# [id number]
== END 2018-02-05 18:05 | DRG 885 ==
LOC: ER 18:54 → GERO 21:30
PROVIDERS: ADMIT Psychiatry & Neurology Psychiatry; ATTEND Psychiatry & Neurology Psychiatry
DX: F25.9 Schizoaffective disorder, unspecified (principal); I10 Essential (primary) hypertension; E11.9 Type 2 diabetes mellitus without complications; E78.5 Hyperlipidemia, unspecified; F29 Unspecified psychosis not due to a substance or known physiological condition; H54.8 Legal blindness, as defined in USA; Z82.49 Family history of ischemic heart disease and other diseases of the circulatory system
CPT/HCPCS: 36415-UA; 80053-TC; 80061-TC; 80307; 80320-TC; 80329-TC; 81001-TC; 82948-90; 83036-90; 84443-TC; 84484-TC; 85025-TC; 86592-TC; 93005; J1200; J1630; J1815; J2060; Z7610